=== PATIENT | male | born 1975 | race Caucasian/White ===

== ENCOUNTER 2018-03-11 08:54 | Inpatient (IN) ==
[2018-03-11] MEDS ORDERED: Morphine Inj 4 MG/ML Vial IV.PUSH ONE (09:32)
[2018-03-11] MEDS ORDERED: Sod Chloride 0.9% Inj 1,000 ML IV.CONT SCH (09:45)
--- NOTE | 2018-03-11 10:04 | ED ---
HPI General Chief Complaint: Fall Stated Complaint: Fall Time Seen by Provider: 03/11/18 09:20 Source: patient, EMS, RN notes reviewed and old records reviewed Mode of arrival: EMS Limitations: no limitations History of Present Illness HPI Narrative: 43-year-old male presents to the emergency department via EMS for stated complaint of falling off a roof. Patient states he was approximately 10 feet high. He was working when it occurred. He states that he fell and landed on his butt and hit his head. He reports significant right hip pain. Patient also reports pain to the occipital head. Current pain is 10/ 10, aching and throbbing, without radiation. Patient reports no chronic medical problems and takes no prescribed medications. Patient is Setswana- speaking and per patient's request, translation is done through family on his phone. The patient denies taking anticoagulants or having any bleeding disorders. Moderate severity. MD complaint: fall Onset (ago): minute(s) Fall from: from height (distance) (10 feet from roof) Place fall occurred: work Loss of consciousness: yes Length of LOC: second(s) Prolonged down time: no Symptoms prior to fall: none Context: tripped/slipped Location of injury: head, back and other (pelvis) Severity: moderate Severity scale (1-10): 10 Quality: aching Related Data Home Medications Medication Instructions Recorded Confirmed No Known Home Medications 03/11/18 03/11/18 Allergies Allergy/AdvReac Type Severity Reaction Status Date / Time No Known Allergies Allergy Unverified 03/11/18 09:32 Review of Systems Except as stated in HPI: all other systems reviewed are negative PMFSH Medical History Medical History Medical history unknown (Acute) Patient denies medical problems (Acute) Social History Social History Substance History: No History of Abuse Second Hand Smoke Exposure: No Smoking Status: Current every day smoker How Often Do You Have a Drink Containing Alcohol: Monthly or less Recent Travel in [place] within the Last 8 Weeks: No Recent Out of Country Travel within the Last 8 Weeks: No Exam Narrative Exam Narrative: GENERAL: Well-nourished, well-developed male patient, afebrile. Patient is lying on a backboard with a c-collar in place. SKIN: Focused skin assessment warm/dry. No lacerations or abrasions HEAD: Normocephalic. Atraumatic EYES: No scleral icterus. No injection or drainage. NECK: Supple, trachea midline. No JVD or lymphadenopathy. CARDIOVASCULAR: Regular rate and rhythm without murmurs, gallops, or rubs. Bilateral radial and pedal pulses are 2+ RESPIRATORY: Breath sounds equal bilaterally. No accessory muscle use. Lung sounds are clear to auscultation GASTROINTESTINAL: Abdomen soft, non-tender, nondistended. MUSCULOSKELETAL: No cyanosis, or edema. BACK: No obvious deformity. No CVA tenderness. Patient is tenderness over right lower back and midline lower back. Course Initial Documented Vital Signs Temperature 98.0 F 03/11/18 09:54 Pulse Rate 57 L 03/11/18 09:54 Respiratory Rate 16 03/11/18 09:54 Blood Pressure 125/85 03/11/18 09:54 Pulse Oximetry 96 03/11/18 09:54 Last Documented Vital Signs Temperature 98.0 F 03/11/18 09:54 Pulse Rate 74 03/11/18 13:58 Respiratory Rate 16 03/11/18 13:58 Blood Pressure 108/61 03/11/18 13:58 Pulse Oximetry 100 03/11/18 13:58 Medical Decision Making MDM Narrative Medical decision making narrative: 43-year-old male presents to the emergency department via EMS after he states he fell from a roof. Patient reports significant lower back and hip pain/pelvic pain. IV access established. CBC, CMP, PTT, PT/INR are ordered and pending. CT of the brain, cervical spine, chest, abdomen/pelvis, thoracic spine, lumbar spine are ordered and pending. NS 1 Liter IV bolus, Morphine 4 mg IV, Reglan 10 mg IV are ordered. CBC shows leukopenia 1.9, neutrophil count was calculated by my attending physician, Dr. Phillips, and total neutrophil count is 712.5, not neutropenic at this time. CMP shows protein corrected calcium of 7.8. PTT is 20.8, PT/INR is 10.0/1.0. CT of the brain is negative. CT of the cervical spine shows no acute findings. CT of the chest shows acute nondisplaced fracture through the left first costochondral junction. CT of the abdomen/pelvis shows acute right L1-[address] of the thoracic spine shows no acute findings. CT of the lumbar spine shows fractures of the right transverse process at L1, L2, and L3 with some surrounding mild hemorrhage. I talked to Dr. Estrada, radiologist and he states this is in the muscle and to be expected with the injury. I discussed the case wtih my attending physician, Dr. Phillips, who recommends TLSO brace, ambulation, pain medications. Patient was unable to stand up or walk due to significant amount of pain. Patient will be admitted. Differential Diagnosis Differential Diagnosis: intracranial hemorrhage vs. contusion vs. closed head injury vs. strain vs. sprain vs. fracture Medical Records Medical records reviewed: Yes I reviewed the patient's medical records. Lab Data Result diagrams: 03/11/18 09:50 03/11/18 09:50 Lab Results 03/11/18 03/11/18 03/11/18 Range/Units 09:50 09:50 09:50 WBC 1.9 L (4.0-11.0) th/mm3 RBC 4.42 L (4.50-5.90) mil/mm3 Hgb 12.3 L (13.0-17.0) gm/dL Hct 37.0 L (39.0-51.0) % MCV 83.5 (80.0-100.0) fL MCH 27.7 (27.0-34.0) pg MCHC 33.2 (32.0-36.0) % RDW 13.5 (11.6-17.2) % Plt Count 236 (150-450) th/mm3 MPV 7.7 (7.0-11.0) fL Prelim Diff (Auto) Slide review pending Neut % (Auto) 37.5 (16.0-70.0) % Lymph % (Auto) 49.3 H (9.0-44.0) % Burt % (Auto) 10.8 H (0.0-8.0) % Eos % (Auto) 2.0 (0.0-4.0) % Baso % (Auto) 0.4 (0.0-2.0) % Neut # (Auto) 0.7 L (1.8-7.7) th/mm3 Lymph # (Auto) 0.9 L (1.0-4.8) th/mm3 Burt # (Auto) 0.2 (0.0-0.9) th/mm3 Eos # (Auto) 0.0 (0.0-0.4) th/mm3 Baso # (Auto) 0.0 (0.0-0.2) th/mm3 WBC Differential Manual diff final Seg Neuts % (Manual) 53 (16-70) % Band Neuts % (Manual) 1 (0-6) % Lymphocytes % (Manual) 35 (9-44) % Monocytes % (Manual) 8 (0-8) % Eosinophils % (Manual) 2 (0-4) % Plasma Cell % (Manual) 1 H (0-0) % Abs Neuts (Manual) 1.0 L (1.8-7.7) th/mm3 Differential Comment . Platelet Estimate Normal (Normal) Platelet Morphology Normal (Normal) RBC Morphology Normal (Normal) PT 10.0 (9.8-11.6) sec INR 1.0 Ratio APTT 20.8 L (24.3-30.1) sec Sodium 145 (136-145) meq/L Potassium 3.7 (3.5-5.1) meq/L Chloride 118 H (98-107) meq/L Carbon Dioxide 19.6 L (21.0-32.0) meq/L Anion Gap 7 (5-15) meq/L BUN 12 (7-18) mg/dL Creatinine 0.72 (0.60-1.30) mg/dL Estimated GFR Greater than 89 (>89) mL/min Random Glucose 80 (74-106) mg/dL Calcium 7.2 L* (8.5-10.1) mg/dL Prot Corrected Calcium 7.8 L (8.5-10.1) mg/dL Total Bilirubin 0.2 (0.2-1.0) mg/dL AST 25 (15-37) U/L ALT 26 (12-78) U/L Alkaline Phosphatase 82 (45-117) U/L Total Protein 5.9 L (6.4-8.2) g/dL Albumin 3.0 L (3.4-5.0) g/dL Imaging Data Radiologist's impression: Abdomen/Pelvis CT 03/11/18 09:32 CONCLUSION: 1. Acute right L1-3 transverse process fractures. Otherwise, unremarkable exam. Cervical Spine CT 03/11/18 09:32 CONCLUSION: 1. No acute findings. Chest CT 03/11/18 09:32 CONCLUSION: 1. Acute nondisplaced fracture through the left first costochondral junction. Otherwise, unremarkable exam. Head CT 03/11/18 09:32 CONCLUSION: 1. Negative CT Head non contrast. Lumbar Spine CT 03/11/18 09:32 CONCLUSION: 1. Fractures of the right transverse process at L1, L2 and L3 with some surrounding mild hemorrhage. No vertebral body fracture or spondylolisthesis. Thoracic Spine CT 03/11/18 09:32 CONCLUSION: 1. No acute findings. Discharge Plan Discharge Disposition Patient Disposition: 30 Still Patient Discharge Details Diagnosis: Closed fracture of transverse process of lumbar vertebra, Closed rib fracture, Fall, Leukopenia Physicians Team ED Provider: Obdulio Phillips ED Midlevel Provider: Kassandra German Primary Care Provider: Primary Care Pushpa Ryan Attending Provider: Daiana Georges Status ED Status: Admitted Patient
[2018-03-11 10:36] LABS: Baso % (Auto) 0.4 % (0.0-2.0); Hemoglobin 12.3 gm/dL (13.0-17.0); Lymph # (Auto) 0.9 th/mm3 (1.0-4.8); Lymph % (Auto) 49.3 % (9.0-44.0); Mean Corpuscular HGB Conc 33.2 % (32.0-36.0); Mean Corpuscular Hemoglobin 27.7 pg (27.0-34.0); Mean Corpuscular Volume 83.5 fL (80.0-100.0); Mean Platelet Volume 7.7 fL (7.0-11.0); Mono # (Auto) 0.2 th/mm3 (0.0-0.9); Mono % (Auto) 10.8 % (0.0-8.0); Neut # (Auto) 0.7 th/mm3 (1.8-7.7); Neut % (Auto) 37.5 % (16.0-70.0); Platelet Count 236 th/mm3 (150-450); Red Blood Count 4.42 mil/mm3 (4.50-5.90); Red Cell Distribution Width 13.5 % (11.6-17.2); White Blood Count 1.9 th/mm3 (4.0-11.0)
[2018-03-11 10:55] LABS: Activated Partial Thrombo Time 20.8 sec (24.3-30.1)
[2018-03-11 11:03] LABS: Alanine Aminotransferase 26 U/L (12-78); Alkaline Phosphatase 82 U/L (45-117); Anion Gap 7 meq/L (5-15); Aspartate Aminotransferase 25 U/L (15-37); Blood Urea Nitrogen 12 mg/dL (7-18); Calcium 7.2 mg/dL (8.5-10.1); Carbon Dioxide 19.6 meq/L (21.0-32.0); Chloride 118 meq/L (98-107); Glomerular Filtration Rate Greater Than 89 mL/min (>89); Glucose,Random 80 mg/dL (74-106); Potassium 3.7 meq/L (3.5-5.1); Sodium 145 meq/L (136-145); Total Protein 5.9 g/dL (6.4-8.2)
[2018-03-11 11:19] LABS: Eosinophils 2 % (0-4); Lymphocytes 35 % (9-44); Monocytes 8 % (0-8); Plasma Cells 1 % (0-0)
[2018-03-11 11:20] LABS: Path Slide Review N; Platelet Estimate Normal (Normal); Platelet Morphology Normal (Normal); RBC Morphology Normal (Normal)
--- NOTE | 2018-03-11 12:02 | CT ---
EXAM DATE: 03/11/2018 11:58 AM EDT AGE/SEX: 43 years / Male INDICATIONS: TRauma, fell 10 feet off of roof. CLINICAL DATA: This is the patient's initial encounter. Patient reports that signs and symptoms have been present for 1 day and indicates a pain score of 7/10. MEDICAL/SURGICAL HISTORY: None. None. RADIATION DOSE: 66.35 CTDI (mGy) COMPARISON: No prior exams available for comparison. TECHNIQUE: CT of the head without contrast. Using automated exposure control and adjustment of the mA and/or kV according to patient size, radiation dose was kept as low as reasonably achievable to ob tain optimal diagnostic quality images. DICOM format image data is available electronically for revi ew and comparison. FINDINGS: Cerebrum: The ventricles are normal for age. No evidence of midline shift, mass lesion, hemorrhage or acute infarction. No extraaxial fluid collections are seen. Posterior Fossa: The cerebellum and brainstem are intact. The 4th ventricle is midline. The cerebe llopontine angle is unremarkable. Extracranial: The visualized portion of the orbits is intact. Skull: The calvaria is intact. No evidence of skull fracture. CONCLUSION: 1. Negative CT Head non contrast. Electronically signed by: Horacio Nina MD 03/11/2018 12:01 PM EDT
--- NOTE | 2018-03-11 12:21 | CT ---
EXAM DATE: 03/11/2018 12:15 PM EDT AGE/SEX: 43 years / Male INDICATIONS: Trauma, fell 10 feet off of roof. CLINICAL DATA: This is the patient's initial encounter. Patient reports that signs and symptoms have been present for 1 day and indicates a pain score of 7/10. MEDICAL/SURGICAL HISTORY: None. None. ORAL CONTRAST: No oral contrast ingested. RADIATION DOSE: 9.97 CTDI (mGy) ; Combined studies COMPARISON: No prior exams available for comparison. TECHNIQUE: Multiple contiguous axial images were obtained through the abdomen and pelvis following b olus infusion of 97 ml Omnipaque 350 (iohexol) nonionic water-soluble contrast as a single exam dos e. No oral contrast ingested. Using automated exposure control and adjustment of the mA and/or kV ac cording to patient size, radiation dose was kept as low as reasonably achievable to obtain optimal di agnostic quality images. DICOM format image data is available electronically for review and comparis on. FINDINGS: Lower Lungs: The visualized lower lungs are clear. Liver: The liver has a homogeneous density without space-occupying lesion. There is no dilation of th e biliary tree. Spleen: Homogeneous density without enlargement. Pancreas: Unremarkable without mass or calcification. Kidneys: Normal in size and shape. No evidence of mass or hydronephrosis. Adrenal Glands: Unremarkable. Aorta: The aorta and proximal iliac vessels are grossly unremarkable without aneurysmal dilation. Bowel/Mesentery: The bowel loops are grossly unremarkable. The cecum and sigmoid colon have a normal configuration. Abdominal Wall: Intact. Retroperitoneum: No evidence of adenopathy in the retrocrural, para-aortic, or deep pelvic regions. Bladder: Contours are smooth. Reproductive Organs: No abnormal masses or calcifications seen. Inguinal: The inguinal region is unremarkable without evidence of adenopathy. Bony Structures: Acute right L1-L3 transverse process fractures.. CONCLUSION: 1. Acute right L1-3 transverse process fractures. Otherwise, unremarkable exam. Electronically signed by: Horacio Nina MD 03/11/2018 12:20 PM EDT
--- NOTE | 2018-03-11 12:24 | CT ---
EXAM DATE: 03/11/2018 12:16 PM EDT AGE/SEX: 43 years / Male INDICATIONS: TRauma, fell 10 feet off of roof. CLINICAL DATA: This is the patient's initial encounter. Patient reports that signs and symptoms have been present for 1 day and indicates a pain score of 7/10. MEDICAL/SURGICAL HISTORY: None. None. RADIATION DOSE: 9.97 CTDI (mGy) ; Reconstructed from previous dataset, no dose COMPARISON: No prior exams available for comparison. TECHNIQUE: Multiple contiguous axial images were obtained through the chest during bolus infusion of 97 ml Omnipaque 350 (iohexol) nonionic water-soluble contrast as a cumulative dose for multiple exa ms. Images were obtained in suspended respiration using multiple row detector helical technique. U sing automated exposure control and adjustment of the mA and/or kV according to patient size, radiati on dose was kept as low as reasonably achievable to obtain optimal diagnostic quality images. DICOM format image data is available electronically for review and comparison. FINDINGS: Lungs: The lungs are symmetrically aerated. No infiltrates or nodular densities are seen. Mediastinum: There is good visualization of the great vessels of the middle mediastinum. No evidenc e of mediastinal or hilar adenopathy/mass. Pleurae: No evidence of focal thickening or pleural effusion. Axillae: Unremarkable. Bony Structures: There is an acute nondisplaced fracture through the costochondral cartilage of the first rib. Bony structures are otherwise unremarkable.. Miscellaneous: The examination was extended to include the upper abdomen, and both adrenal glands ar e normal in size and configuration. CONCLUSION: 1. Acute nondisplaced fracture through the left first costochondral junction. Otherwise, unremarkabl e exam. Electronically signed by: Horacio Nina MD 03/11/2018 12:23 PM EDT
--- NOTE | 2018-03-11 12:51 | CT ---
EXAM DATE: 03/11/2018 12:34 PM EDT AGE/SEX: 43 years / Male INDICATIONS: Trauma, fell 10 feet off of roof. CLINICAL DATA: This is the patient's initial encounter. Patient reports that signs and symptoms have been present for 1 day and indicates a pain score of 7/10. MEDICAL/SURGICAL HISTORY: None. None. RADIATION DOSE: 21.01 CTDI (mGy) COMPARISON: No prior exams available for comparison. TECHNIQUE: Contiguous axial images were obtained using helical multirow detector technique. The vol umetric data was post-processed with multiplanar reconstruction in oblique axial, sagittal, and coron al planes. Using automated exposure control and adjustment of the mA and/or kV according to patient s ize, radiation dose was kept as low as reasonably achievable to obtain optimal diagnostic quality beronica ges. DICOM format image data is available electronically for review and comparison. FINDINGS: There is no acute fracture or spondylolisthesis. No prevertebral soft tissue swelling. There is no ca nal stenosis. CONCLUSION: 1. No acute findings. Electronically signed by: Alex Estrada MD 03/11/2018 12:50 PM EDT
--- NOTE | 2018-03-11 12:55 | CT ---
EXAM DATE: 03/11/2018 12:44 PM EDT AGE/SEX: 43 years / Male INDICATIONS: Trauma, fell 10 feet off of roof. CLINICAL DATA: This is the patient's initial encounter. Patient reports that signs and symptoms have been present for 1 day and indicates a pain score of 7/10. MEDICAL/SURGICAL HISTORY: None. None. RADIATION DOSE: . CTDI (mGy) ; Reconstructed from previous dataset, no dose COMPARISON: No prior exams available for comparison. TECHNIQUE: Contiguous axial images were acquired with a multirow detector CT scanner after intraveno us administration of 97 ml Omnipaque 350 (iohexol) nonionic water-soluble contrast as a cumulative d ose for multiple exams. Multiplanar reconstructions in the sagittal and coronal plane were also perf ormed. Using automated exposure control and adjustment of the mA and/or kV according to patient size, radiation dose was kept as low as reasonably achievable to obtain optimal diagnostic quality images. DICOM format image data is available electronically for review and comparison. FINDINGS: There are fractures through the right transverse process at L1, L2 and L3 with a small amount of surr ounding hemorrhage. There is no vertebral body fracture or spondylolisthesis. No canal or foraminal s tenosis. CONCLUSION: 1. Fractures of the right transverse process at L1, L2 and L3 with some surrounding mild hemorrhage. No vertebral body fracture or spondylolisthesis. Electronically signed by: Alex Estrada MD 03/11/2018 12:54 PM EDT
--- NOTE | 2018-03-11 13:00 | CT ---
EXAM DATE: 03/11/2018 12:40 PM EDT AGE/SEX: 43 years / Male INDICATIONS: Trauma, patient fell 10 feet off of roof. CLINICAL DATA: This is the patient's initial encounter. Patient reports that signs and symptoms have been present for 1 day and indicates a pain score of 7/10. MEDICAL/SURGICAL HISTORY: None. None. RADIATION DOSE: 9.97 CTDI (mGy) ; Reconstructed from previous dataset, no dose COMPARISON: No prior exams available for comparison. TECHNIQUE: Contiguous axial images were acquired using a multirow detector CT scanner after intraven ous administration of 97 ml Omnipaque 350 (iohexol) nonionic water-soluble contrast as a cumulative dose for multiple exams. Multiplanar reconstruction in the sagittal and coronal planes was performe d. Using automated exposure control and adjustment of the mA and/or kV according to patient size, ra diation dose was kept as low as reasonably achievable to obtain optimal diagnostic quality images. D ICOM format image data is available electronically for review and comparison. FINDINGS: There is no acute fracture or spondylolisthesis. No canal or foraminal stenosis. There is no paravert ebral soft tissue swelling. Dependent atelectasis in the lungs. CONCLUSION: 1. No acute findings. Electronically signed by: Alex Estrada MD 03/11/2018 12:58 PM EDT
[2018-03-11] MEDS ORDERED: HYDROmorphone PF Inj 1 MG/ML Ampul IV.PUSH PRN (17:41)
--- NOTE | 2018-03-11 17:58 | P.HPCC ---
History of Present Illness Primary Care Physician: No Primary Care Physician Chief Complaint: Back pain History of Present Illness: 43 y.o male fell 10 feet from the roof-seen and worked up by the ER.C/o back pain-cannot ambulate,neuro intact,GCS 15-resting comfortably at the time of my exam. Inpatient Certification: I certify that the inpatient services were ordered in accordance with Medicare regulations governing the order. This includes certification that hospital inpatient services are reasonable and necessary and in the case of services not specified as inpatient-only under 42 CFR 419.22(n), that they are appropriately provided as inpatient services in accordance to with the 2-midnight benchmark under 43 CFR 412.3(e) Estimated Total Length of Stay (Days): 2 Plans for Post Hospital Care: Home Review of Systems Constitutional: Denies anorexia, Denies body ache(s), Denies chills, Denies daytime sleepiness, Denies excessive sweating, Denies fatigue, Denies fever(s), Denies headache(s), Denies increased appetite, Denies lack of energy, Denies malaise, Denies night sweats, Denies weakness, Denies weight gain, Denies weight loss, Denies other Eyes: Denies blind spots, Denies blurry vision, Denies bulging eyes, Denies change in vision, Denies double vision, Denies discharge, Denies dry eyes, Denies floaters, Denies irritation, Denies itchy eyes, Denies loss of vision, Denies pain, Denies requires corrective lenses, Denies sensitivity to light, Denies other Ears, Nose, Mouth, and Throat: Denies abnormal hearing, Denies bleeding gums, Denies bad breath, Denies change in voice, Denies dental pain, Denies difficulty swallowing, Denies dizziness, Denies dry mouth, Denies ear discharge , Denies ear pain, Denies facial pain, Denies headache(s), Denies hearing loss, Denies hoarseness, Denies lip swelling, Denies nosebleed, Denies mouth lesions, Denies mouth pain, Denies nasal congestion, Denies nasal discharge, Denies nasal obstruction, Denies nasal trauma, Denies neck lump, Denies neck pain, Denies nose pain, Denies pain with swallowing, Denies poor balance, Denies post nasal drip, Denies ringing in the ears, Denies sinus pain, Denies sinus pressure , Denies sore throat, Denies throat swelling, Denies tongue swelling, Denies other Cardiovascular: Denies chest pain, Denies chest pain at rest, Denies chest pain with activity, Denies excessive sweating, Denies fainting, Denies fast heart rate, Denies foot swelling, Denies generalized swelling, Denies irregular heart rhythm, Denies leg pain with activity, Denies leg sores, Denies leg swelling, Denies lightheadedness, Denies radiating jaw, neck or arm pain, Denies rapid, pounding, or irregular heartbeat, Denies shortness of breath, Denies shortness of breath with activity, Denies shortness of breath when lying down, Denies shortness of breath causing sudden awakening, Denies slow heart rate, Denies other Respiratory: Denies change in phlegm color, Denies chest congestion, Denies cough, Denies coughing up blood, Denies excessive phlegm production, Denies pain on inspiration, Denies pain with cough, Denies shortness of breath, Denies shortness of breath with activity, Denies snoring, Denies stridor, Denies wheezing, Denies other Gastrointestinal: Denies abdominal pain, Denies belching, Denies black, tarry stools, Denies bloating, Denies bright, red blood in stools, Denies change in bowel habits, Denies constant urge to pass stool, Denies change in stools, Denies coffee ground vomit, Denies constipation, Denies cramping, Denies difficulty swallowing, Denies excessive passing of gas, Denies feeling full early, Denies heartburn, Denies incontinent of stools, Denies loose stools, Denies nausea, Denies pain with swallowing, Denies vomiting, Denies vomiting blood, Denies other Genitourinary: Denies blood in semen, Denies blood in urine, Denies decreased urination, Denies difficulty urinating, Denies difficulty with ejaculations, Denies erectile dysfunction, Denies genital lesions, Denies genital pain, Denies painful urination, Denies side pain, Denies frequent nighttime urination , Denies painful ejaculations, Denies penile discharge, Denies scrotal swelling , Denies testicle lump, Denies testicle pain, Denies urinary frequency, Denies urinary hesitancy, Denies urinary incontinence, Denies urinary urgency, Denies other Skin/Breast: Denies acne, Denies bleeding lesions, Denies boil, Denies breast swelling, Denies breast skin changes, Denies breast pain, Denies breast lump, Denies change in breast shape, Denies change in hair, Denies change in skin color, Denies changing lesions, Denies dry skin, Denies excessive hair growth, Denies hair loss, Denies itching, Denies lesions, Denies nail changes, Denies new lesions, Denies nipple discharge, Denies non-healing lesions, Denies redness , Denies sensitivity to light, Denies rash, Denies skin pain, Denies skin ulcer , Denies sores, Denies stretch higgins, Denies unusual bruising, Denies wounds, Denies yellowing of the skin, Denies other Neurologic: Denies abnormal hearing, Denies abnormal movements, Denies abnormal speech, Denies abnormal walking, Denies behavioral changes, Denies burning sensations, Denies confusion, Denies dizziness, Denies fainting, Denies frequent falls, Denies headache(s), Denies lack of coordination, Denies localized weakness, Denies loss of vision, Denies memory loss, Denies numbness, Denies other visual disturbances, Denies radiating pain, Denies restless legs, Denies convulsions, Denies seizure-like activity, Denies sensory deficit, Denies tingling, Denies tingling/numbness/burning sensations, Denies tremor(s), Denies unsteadiness, Denies weakness, Denies other Psychiatric: Denies abnormal sleep pattern, Denies anxiety, Denies behavioral changes, Denies change in appetite, Denies change in sex drive, Denies confusion , Denies depression, Denies difficulty concentrating, Denies hearing things others do not hear, Denies hopelessness, Denies irritability, Denies lack of enjoyment, Denies memory loss, Denies mood swings, Denies panic attacks, Denies paranoia, Denies seeing things others do not see, Denies sensing things others do not sense, Denies tactile hallucinations, Denies thoughts of hurting/killing others, Denies thoughts of hurting/killing yourself, Denies other Endocrine: Denies cold intolerance, Denies excessive sweating, Denies flushing, Denies heat intolerance, Denies increased hunger, Denies increased thirst, Denies increased urination, Denies rapid, pounding, or irregular heartbeat, Denies other Hematologic/Lymphatic: Denies easy bleeding, Denies easy bruising, Denies enlarged lymph nodes, Denies other PMFSH - History History Provided By: Engraving Supervisor / EMT - Medical History Medical History: Medical History (Last Updated 03/11/18 @ 10:00 by Purnima Merlos) Medical history unknown Patient denies medical problems - Tobacco History Second Hand Smoke Exposure: No Tobacco Use In Past 30 Days: No Smoking Status: Current every day smoker - Alcohol History How Often Do You Have a Drink Containing Alcohol: Monthly or less - Substance Use History Substance History: No History of Abuse - Travel History Recent Travel in the [place] Within the Last 8 Weeks: No Recent Travel Out of the Country Within the Last 8 Weeks: No - Immunization History Tetanus Immunization: Unsure Hx Influenza Vaccine This Season: Unable to Assess Medications and Allergies Active Medications: Active Medications Chlorhexidine Gluconate (Chlorhexidine 2% Cloth) 3 pack TOPICAL DAILY@0400 [facility] Stop: 03/17/18 03:59 Chlorhexidine Gluconate (Chlorhexidine 2% Cloth) 3 pack TOPICAL DAILY@0400 PRN PRN Reason: Extra cloth needed Stop: 03/17/18 03:59 Docusate Sodium (Colace) 100 mg PO BID [facility] Hydromorphone HCl (Dilaudid Pf Inj) 1 mg IV.PUSH Q4H PRN PRN Reason: Break through pain Lactated Ringer's (Lr 1000 Ml Inj) 1,000 mls @ 100 mls/hr IV.CONT .Q10H [facility] Acetaminophen (Ofirmev Inj) 1,000 mg in 100 mls @ 400 mls/hr IV.SIG Q6H [facility] Stop: 03/12/18 12:14 Methocarbamol (Robaxin) 500 mg PO Q8HR [facility] Ondansetron HCl (Zofran Inj) 4 mg IV.PUSH Q6H PRN PRN Reason: NAUSEA OR VOMITING Oxycodone HCl (Roxicodone) 5 mg PO Q4H PRN PRN Reason: PAIN SCALE 3 TO 5 Oxycodone HCl (Roxicodone) 10 mg PO Q4H PRN PRN Reason: PAIN SCALE 6 TO 10 Sodium Chloride (Ns Flush) 2 ml IV.FLUSH PRN PRN PRN Reason: FLUSH AFTER USING IV ACCESS Last Admin: 03/11/18 09:42 Dose: 2 ml Sodium Chloride (Ns Flush) 2 ml IV.FLUSH UNSCH PRN PRN Reason: FLUSH AFTER USING IV ACCESS Allergies Allergy/AdvReac Type Severity Reaction Status Date / Time No Known Allergies Allergy Unverified 03/11/18 09:32 Home Medications Medication Instructions Recorded Confirmed Type No Known Home Medications 03/11/18 03/11/18 History Results - Labs CBC & Chem 7: 03/11/18 09:50 03/11/18 09:50 Labs: Short CBC 03/11/18 Range/Units 09:50 WBC 1.9 L (4.0-11.0) th/mm3 Hgb 12.3 L (13.0-17.0) gm/dL Hct 37.0 L (39.0-51.0) % Plt Count 236 (150-450) th/mm3 BMP 03/11/18 09:50 Sodium 145 Potassium 3.7 Chloride 118 H Carbon Dioxide 19.6 L BUN 12 Creatinine 0.72 Calcium 7.2 L* Liver Function 03/11/18 Range/Units 09:50 Total Bilirubin 0.2 (0.2-1.0) mg/dL AST 25 (15-37) U/L ALT 26 (12-78) U/L Alkaline Phosphatase 82 (45-117) U/L Albumin 3.0 L (3.4-5.0) g/dL - Imaging Impressions Abdomen/Pelvis CT 03/11/18 09:32 CONCLUSION: 1. Acute right L1-3 transverse process fractures. Otherwise, unremarkable exam. Cervical Spine CT 03/11/18 09:32 CONCLUSION: 1. No acute findings. Chest CT 03/11/18 09:32 CONCLUSION: 1. Acute nondisplaced fracture through the left first costochondral junction. Otherwise, unremarkable exam. Head CT 03/11/18 09:32 CONCLUSION: 1. Negative CT Head non contrast. Lumbar Spine CT 03/11/18 09:32 CONCLUSION: 1. Fractures of the right transverse process at L1, L2 and L3 with some surrounding mild hemorrhage. No vertebral body fracture or spondylolisthesis. Thoracic Spine CT 03/11/18 09:32 CONCLUSION: 1. No acute findings. Exam Vital signs: Vital Signs 03/11/18 09:54 03/11/18 09:58 03/11/18 13:58 Temperature 98.0 F Pulse Rate 57 L 58 L 74 Respiratory Rate 16 16 16 Blood Pressure 125/85 116/78 108/61 Pulse Oximetry 96 100 100 Intake & Output 03/10/18 03/11/18 03/11/18 18:59 06:59 18:59 Intake Total 1000 / 1000 Balance 1000 / 1000 Weight 68.039 kg Intake: IV 1000 / 1000 NS Inj 1,000 ML @ 1000 mls/hr 1000 / 1000 IV.CONT .Q1H [facility] Rx#:[id number] - Constitutional no acute distress - Routine HEENT Exam Head: Present: normocephalic, atraumatic Eye: Present: EOMI, PERRL, normal accommodation ENT: Present: mucous membranes moist - Routine Neck Exam Present: supple, full ROM - Routine Chest/Breast/Axilla Exam Chest wall: Present: tenderness - Routine Cardiovascular Exam Present: bradycardia - Routine Abdominal Exam Present: soft, normoactive bowel sounds - Routine Extremities Exam Present: full ROM, pulses intact, normal capillary refill - Routine Skin Exam Present: intact - Routine Neurological Exam Present: alert, oriented X3 Caprini VTE Risk Assessment Caprini VTE Risk Assessment: No/Low Risk (score <= 1) (lovenox tomorrow) Caprini Risk Assessment Model: Point Value = 1 Point Value = 2 Point Value = 3 Point Value = 5 Age 41-60 Minor surgery BMI > 25 kg/m2 Swollen legs Varicose veins or History of unexplained or recurrent spontaneous Oral contraceptives or hormone replacement Sepsis (< 1 month) Serious lung disease, including pneumonia (< 1 month) Abnormal pulmonary function Acute myocardial infarction Congestive heart failure (< 1 month) History of inflammatory bowel disease Medical patient at bed rest Age 61-74 Arthroscopic surgery Major open surgery (> 45 min) Laparoscopic surgery (> 45 min) Malignancy Confined to bed (> 72 hours) Immobilizing plaster cast Central venous access Age >= 75 History of VTE Family history of VTE Factor V Leiden Prothrombin [id number] Lupus anticoagulant Anticardiolipin antibodies Elevated serum homocysteine Heparin-induced thrombocytopenia Other congenital or acquired thrombophilia Stroke (< 1 month) Elective arthroplasty Hip, pelvis, or leg fracture Acute spinal cord injury (< 1 month) Prophylaxis Regimen: Total Risk Factor Score Risk Level Prophylaxis Regimen 0-1 Low Early ambulation 2 Moderate Order ONE of the following: *Sequential Compression Device (SCD) *Heparin 5000 units SQ BID 3-4 Higher Order ONE of the following medications: *Heparin 5000 units SQ TID *Enoxaparin/Lovenox 40 mg SQ daily (WT < 150 kg, CrCl > 30 mL/min) *Enoxaparin/Lovenox 30 mg SQ daily (WT < 150 kg, CrCl > 10-29 mL/min) *Enoxaparin/Lovenox 30 mg SQ BID (WT < 150 kg, CrCl > 30 mL/min) AND/OR *Sequential Compression Device (SCD) 5 or more Highest Order ONE of the following medications: *Heparin 5000 units SQ TID (Preferred with Epidurals) *Enoxaparin/Lovenox 40 mg SQ daily (WT < 150 kg, CrCl > 30 mL/min) *Enoxaparin/Lovenox 30 mg SQ daily (WT < 150 kg, CrCl > 10-29 mL/min) *Enoxaparin/Lovenox 30 mg SQ BID (WT < 150 kg, CrCl > 30 mL/min) AND *Sequential Compression Device (SCD) Assessment and Plan - Assessment and Plan Plan: First rib fx L1,L2,L3 TP fx Admit to med/surg pain control ambulate
[2018-03-11] MEDS ORDERED: HYDROmorphone PF Inj 2 MG/ML Vial IV.PUSH PRN (18:00)
[2018-03-11] MEDS: Methocarbamol 500 MG Tablet PO SCH (18:19)
[2018-03-11] MEDS: Docusate Sodium 100 MG Capsule PO SCH (22:37)
[2018-03-12] MEDS ORDERED: Chlorhexidine Gluconate 2% 1 Pack (2 Cloths) TOPICAL PRN (04:00)
[2018-03-12] MEDS ORDERED: Chlorhexidine Gluconate 2% 1 Pack (2 Cloths) TOPICAL SCH (04:00)
--- NOTE | 2018-03-12 05:28 | XR ---
EXAM DATE: 03/12/2018 5:04 AM EDT AGE/SEX: 43 years / Male INDICATIONS: Follow up trauma due to falling 10 feet off of roof. CLINICAL DATA: This is the patient's initial encounter. Patient reports that signs and symptoms have been present for 2 days and indicates a pain score of 10/10. MEDICAL/SURGICAL HISTORY: None. None. COMPARISON: [facility] [place], CT CHEST W CONTRAST, 03/11/2018. . FINDINGS: There are mild bibasilar parenchymal opacities which may be atelectasis or contusion. Cardiac contour s are grossly satisfactory for technique and projection. CONCLUSION: Mild basilar parenchymal opacities. Electronically signed by: Mane Larios MD 03/12/2018 5:27 AM EDT
[2018-03-12 06:19] LABS: Baso % (Auto) 0.3 % (0.0-2.0); Eos % (Auto) 0.3 % (0.0-4.0); Hematocrit 36.1 % (39.0-51.0); Lymph # (Auto) 0.6 th/mm3 (1.0-4.8); Lymph % (Auto) 25.9 % (9.0-44.0); Mean Corpuscular HGB Conc 33.2 % (32.0-36.0); Mean Corpuscular Hemoglobin 27.9 pg (27.0-34.0); Mean Corpuscular Volume 84.3 fL (80.0-100.0); Mean Platelet Volume 7.3 fL (7.0-11.0); Mono # (Auto) 0.2 th/mm3 (0.0-0.9); Mono % (Auto) 8.3 % (0.0-8.0); Neut # (Auto) 1.5 th/mm3 (1.8-7.7); Neut % (Auto) 65.2 % (16.0-70.0); Platelet Count 244 th/mm3 (150-450); Red Blood Count 4.28 mil/mm3 (4.50-5.90); Red Cell Distribution Width 13.6 % (11.6-17.2); White Blood Count 2.2 th/mm3 (4.0-11.0)
[2018-03-12] MEDS: Methocarbamol 500 MG Tablet PO SCH ×3 (06:20→21:20)
[2018-03-12 07:37] LABS: Anion Gap 11 meq/L (5-15); Blood Urea Nitrogen 9 mg/dL (7-18); Calcium 8.3 mg/dL (8.5-10.1); Chloride 106 meq/L (98-107); Glomerular Filtration Rate Greater Than 89 mL/min (>89); Glucose,Random 112 mg/dL (74-106); Potassium 3.7 meq/L (3.5-5.1); Sodium 140 meq/L (136-145)
--- NOTE | 2018-03-12 08:27 | ECG ---
Date Performed: 03/11/2018 Time Performed: 13:08:09 PTAGE: 43 years EKG: SINUS BRADYCARDIA POSSIBLE RIGHT VENTRICULAR CONDUCTION DELAY BORDERLINE ECG NO PREVIOUS TRACING DOCTOR: Sridhar Martinez Interpretating Date/Time 03/12/2018 08:22:23
[2018-03-12] MEDS: Famotidine 20 MG Tablet PO SCH ×2 (08:35→21:16)
[2018-03-12] MEDS: Docusate Sodium 100 MG Capsule PO SCH ×2 (08:35→21:16)
[2018-03-12] MEDS: Lidocaine 5% Patch T-DERMAL SCH (08:35)
[2018-03-12] MEDS ORDERED: Morphine Sulfate Inj 2 MG/ML Vial IV.PUSH PRN (12:18)
[2018-03-12] MEDS ORDERED: Melatonin 5 MG Tablet PO PRN (12:19)
--- NOTE | 2018-03-12 12:24 | P.PN ---
Addendum entered and electronically signed by POLI Brady 15:46: WBC - 2.2 (1.9 on admission) Obtain hematology consult for evaluation Pt claims no medical history. Original Note: Subjective Interval history: TRAUMA PTD: 1 Pt lying in bed. C/O headache. Girlfriend at bedside and assists with translation. Physical Exam Vital signs: Vital Signs 03/11/18 13:58 03/11/18 17:00 03/11/18 20:00 Temperature 98.6 F Pulse Rate 74 77 50 L Respiratory Rate 16 20 15 Blood Pressure 108/61 104/56 L 117/77 Pulse Oximetry 100 97 97 03/11/18 22:00 03/12/18 00:00 03/12/18 04:00 Temperature 98.2 F 97.8 F Pulse Rate 55 L 52 L 53 L Respiratory Rate 16 18 Blood Pressure 123/81 99/58 L Pulse Oximetry 98 95 03/12/18 08:00 03/12/18 10:10 03/12/18 12:10 Temperature 97.8 F Pulse Rate 52 L Respiratory Rate 19 16 Blood Pressure 123/74 Pulse Oximetry 94 L 94 L Intake & Output 03/11/18 03/12/18 03/12/18 18:59 06:59 18:59 Intake Total 1000 / 1000 1740 / 1740 Output Total 300 / 300 250 / 250 Balance 700 / 700 1490 / 1490 Weight 68.039 kg 78.1 kg Intake: IV 1000 / 1000 1260 / 1260 LR 1000 mL Inj 1,000 ML @ 100 960 / 960 mls/hr IV.CONT .Q10H [facility] Rx#: [id number] NS Inj 1,000 ML @ 1000 mls/hr 1000 / 1000 IV.CONT .Q1H [facility] Rx#:[id number] Ofirmev Inj 1,000 mg In 100 ml 300 / 300 @ 400 mls/hr IV.SIG Q6H [facility] Rx# :[id number] Oral 480 / 480 Output: Urine 300 / 300 250 / 250 Other: # Voids 1 Date of Last Bowel Movement 03/10/18 Weight On Admission 60.039 kg Narrative: GENERAL: This is a 43-year-old male lying in bed. No distress noted. SKIN: Warm and dry. HEAD: Atraumatic. Normocephalic. EYES: PERRLA ENT: No nasal bleeding or discharge. Mucous membranes pink and moist. NECK: Trachea midline. No JVD. CARDIOVASCULAR: Regular rate and rhythm. RESPIRATORY: No accessory muscle use. Lungs are clear to auscultation. Breath sounds equal bilaterally. No distress or dyspnea. GASTROINTESTINAL: BS + x 4 quads. Abdomen soft, non-tender, nondistended. MUSCULOSKELETAL: Extremities without cyanosis, or edema. + peripheral pulses x 4 extremities. Warm with good capillary refill and sensation. MAEW. NEUROLOGICAL: Awake and alert. Normal speech and pattern. Results - Labs CBC & Chem 7: 03/14/18 13:52 03/14/18 13:52 Laboratory Results - last 24 hr 03/11/18 03/12/18 03/12/18 23:45 05:53 05:53 WBC 2.2 L RBC 4.28 L Hgb 12.0 L Hct 36.1 L MCV 84.3 MCH 27.9 MCHC 33.2 RDW 13.6 Plt Count 244 MPV 7.3 Neut % (Auto) 65.2 Lymph % (Auto) 25.9 [place] % (Auto) 8.3 H Eos % (Auto) 0.3 Baso % (Auto) 0.3 Neut # (Auto) 1.5 L Lymph # (Auto) 0.6 L [place] # (Auto) 0.2 Eos # (Auto) 0.0 Baso # (Auto) 0.0 WBC Differential . Differential Comment Auto diff final Sodium 140 Potassium 3.7 Chloride 106 D Carbon Dioxide 23.0 Anion Gap 11 BUN 9 Creatinine 0.88 Estimated GFR Greater than 89 Random Glucose 112 H Calcium 8.3 L D Nasal Screen MRSA (PCR) Not detected - Imaging Impressions Abdomen/Pelvis CT 03/11/18 09:32 CONCLUSION: 1. Acute right L1-3 transverse process fractures. Otherwise, unremarkable exam. Cervical Spine CT 03/11/18 09:32 CONCLUSION: 1. No acute findings. Chest CT 03/11/18 09:32 CONCLUSION: 1. Acute nondisplaced fracture through the left first costochondral junction. Otherwise, unremarkable exam. Lumbar Spine CT 03/11/18 09:32 CONCLUSION: 1. Fractures of the right transverse process at L1, L2 and L3 with some surrounding mild hemorrhage. No vertebral body fracture or spondylolisthesis. Thoracic Spine CT 03/11/18 09:32 CONCLUSION: 1. No acute findings. Chest X-Ray 03/12/18 06:00 CONCLUSION: Mild basilar parenchymal opacities. Assessment and Plan - Plan SUN'AQ: This is a 43-year-old male who sustained a fall from a roof. He fell approximately 10 feet. He landed on his buttocks and hit his head. GCS 15. INJURIES: LEFT rib fx (1) L1-L3 right transverse process fx w/ hemorrhage Procedures: Consults: Case management. Diet: Regular diet. Tolerating po diet. Encourage good po intake with each meal. Pulmonary: Encourage good pulmonary toileting. IS and acapella at bedside and pt encouraged to use. Rationale for use explained to patient, and verbalized understanding. PAIN Management: Oxycodone 5-10 mg q 4h. DC Dilaudid (itching) Try Morphine 3 mg q 3h breakthrough pain. Robaxin 500 mg q8h. Lidoderm Patch. Ofirmev x 4 doses. Added Benadryl for itching. Sleep: Melatonin 5 mg q HS. Activity: OOB. PT ordered. (TLSO brace) GI prophylaxis: Pepcid 20 mg BID po Bowel regimen: Colace. MOM. LBM: 03/10 DVT prophylaxis: Mechanical VTE with SCDs. Chemical management with Lovenox 30 mg BID SQ. DC Planning: Case management consulted for assistance with final discharge disposition. Emotional support provided to patient and family at bedside and plan of care discussed. Discussed with RN at bedside. Discussed pt condition and plan of care with collaborating trauma surgeon. Patient is hemodynamically stable and being managed on the med/surg floor. The trauma team will round each day, and evaluate plan of care on a daily basis. LEFT rib fx (1) L1-L3 right transverse process fx w/ hemorrhage O2 nasal cannula as needed Supportive care Aggressive pulmonary toileting Chest x-ray daily This A.m. chest x-ray shows bibasilar opacities. Contusion versus atelectasis. Pain management PT and OT ordered Encourage out of bed TLSO brace when Bowel regimen Lovenox for DVT prophylaxis Addendum Patient seen and examined, continue pain control, continue ambulation complains of pain le right lower extremity will obtain x-rays to r/o fracture
--- NOTE | 2018-03-12 20:18 | MB ---
cc: Michelle Lugo MD, Ruby Anne E MD DATE: 03/12/2018 REFERRING PHYSICIAN: Dr. Daiana Georges. CHIEF COMPLAINT: Dr. Georges requests a consultation for Mr. Randal Aparicio regarding leukopenia associated with anemia, post-trauma. HISTORY OF PRESENT ILLNESS: Mr. Randal Aparicio is a 43-year-old man with no significant past history. He apparently does not go to a doctor for any reason. He was working on the roof and fell backwards. It was a misstep. He fell, hit his back, back of his leg, his hip and the back of his head. He presented to the emergency room and was brought in via executive search consultant and EMT. He had imaging study that confirmed various injuries, mainly fracture to the acute right L1-L3 transverse processes. He also has a nondisplaced fracture through the left first costochondral junction. He complains mainly of pain in his right hip. He has pain in his back. He is anxious about meeting with hematology. During his evaluation, laboratory studies were performed that shows leukopenia, white blood cell count 1.9, hemoglobin 12.3, and differential that shows a 1% plasma cell. A repeat CBC the following day continues to show the leukopenia, white blood cell count 2.2, hemoglobin 12.0, platelet count 244. He is still in a significant amount of pain. He is managed conservatively for his various fractures. Hematology oncology is consulted for the anemia and leukopenia. Prior to his injury, he was well. Denies any fevers, chills or night sweats. He has no significant family history of a blood disorder. He has no known blood disorder. He has no headaches. No vision changes, no previous history of hypertension, diabetes, or cholesterol problems. His chemistry is noted to have a normal glucose and normal kidney function. His total protein is noted to be low; however, an albumin is 3.0; however, this is post his acute injury. PAST MEDICAL HISTORY: Leukopenia, anemia, trauma with transverse process and first left rib fracture. PAST SURGICAL HISTORY: None. SOCIAL HISTORY: He is a current smoker. He denies any illicit drug use. He drinks alcohol less than once a month. FAMILY HISTORY: No family history of cancer or blood disorder. ALLERGIES: NO KNOWN DRUG ALLERGIES. CURRENT MEDICATIONS: 1. Milk of magnesia 2. Benadryl. 2. Colace. 3. Lovenox. 4. Pepcid. 5. Lidocaine patch 6. Melatonin 7. Robaxin 8. Morphine p.r.n. 9. Zofran. 10. Roxicodone. PHYSICAL EXAMINATION: VITAL SIGNS: Temperature 97.6, heart rate 106, respiratory rate 19, blood pressure 125/60, saturation 96%. GENERAL: Mr. Randal Aparicio is a well-developed, well-nourished, anxious-appearing man. HEENT: Pupils are round, reactive to light and accommodation. Oropharynx is clear. NECK: Supple. LUNGS: Clear anteriorly. CARDIOVASCULAR: Reveals a mild tachycardia. ABDOMEN: Benign. LOWER EXTREMITIES: No edema. NEUROLOGIC: Nonfocal. LABORATORY DATA: As described above. IMAGING STUDIES: CT of the abdomen 03/11 shows acute right L1-L3 transverse process fracture. CT scan of the chest shows acute nondisplaced fracture through the left first costochondral joint. Otherwise, uneventful exam. ASSESSMENT AND PLAN: Mr. Randal Aparicio is a 43-year-old man with no significant past history. He has no known prior blood disorder. He fell and fractured L1-L3 transverse process on the right. He also has a fracture of the left first costochondral junction. He has contusions in his hip as well as back. He is conservatively using ice as recommended to decrease the inflammation and obtained good hemostasis. Suspect the decrease in hemoglobin from normal range is related to the bleeding in the area of trauma. We will monitor closely his hemoglobin as he was placed on low molecular weight heparin for DVT prophylaxis. He is at increased risk in light of his decreased mobility. He, however, has trauma and hematoma in those areas. We will monitor closely. May need to decrease his low molecular weight heparin. Peripheral smear will be reviewed. LDH is checked as well as retic counts. I anticipate that the peripheral smear will be negative and normal. I suspect this is his baseline or at least related to the acute trauma. We discussed that I suspect that his white blood cells are localizing to the sites of trauma and thus the decreased white blood cell count seen in circulation. Ideally we would compare his CBC to previous one, but he has not seen a doctor for many years. We recommend checking a CBC once he is better several weeks from now in confirming his baseline labs. MD RICHELLE Martinez , 07:42 PM , 08:16 PM
[2018-03-12] MEDS ORDERED: Enoxaparin Inj 30 MG/0.3 ML Syringe SQ SCH (21:00)
[2018-03-12] MEDS ORDERED: Ketorolac Inj 30 MG/ML (IVP) Vial IV.PUSH ONE ×2 (22:45→23:00)
[2018-03-13] MEDS: Methocarbamol 500 MG Tablet PO SCH ×4 (05:15→22:36)
--- NOTE | 2018-03-13 06:55 | XR ---
EXAM DATE: 03/13/2018 6:47 AM EDT AGE/SEX: 43 years / Male INDICATIONS: Follow up trauma fall 10 feet off a roof. CLINICAL DATA: This is the patient's subsequent encounter. Patient reports that signs and symptoms h ave been present for 3 days and indicates a pain score of 8/10. MEDICAL/SURGICAL HISTORY: None. None. COMPARISON: [facility], CHEST 1V SINGLE AP, 03/12/2018. . FINDINGS: Persistent mild bibasilar parenchymal opacities, left worse than right which may be mild lung contusi ons. Cardiac contours are grossly stable. CONCLUSION: No significant interval change Electronically signed by: Mane Larios MD 03/13/2018 6:53 AM EDT
[2018-03-13 07:26] LABS: Baso % (Auto) 0.4 % (0.0-2.0); Eos # (Auto) 0.1 th/mm3 (0.0-0.4); Eos % (Auto) 2.7 % (0.0-4.0); Hematocrit 35.3 % (39.0-51.0); Hemoglobin 11.8 gm/dL (13.0-17.0); Lymph # (Auto) 0.9 th/mm3 (1.0-4.8); Lymph % (Auto) 32.4 % (9.0-44.0); Mean Corpuscular HGB Conc 33.5 % (32.0-36.0); Mean Corpuscular Hemoglobin 28.1 pg (27.0-34.0); Mean Corpuscular Volume 83.9 fL (80.0-100.0); Mean Platelet Volume 7.3 fL (7.0-11.0); Mono # (Auto) 0.2 th/mm3 (0.0-0.9); Mono % (Auto) 8.5 % (0.0-8.0); Neut # (Auto) 1.6 th/mm3 (1.8-7.7); Platelet Count 230 th/mm3 (150-450); Red Cell Distribution Width 13.5 % (11.6-17.2); Reticulocyte Percent 1.6 % (0.4-3.0); White Blood Count 2.8 th/mm3 (4.0-11.0)
[2018-03-13] MEDS ORDERED: Enoxaparin Inj 30 MG/0.3 ML Syringe SQ SCH (09:00)
[2018-03-13] MEDS: Famotidine 20 MG Tablet PO SCH ×2 (09:32→22:34)
[2018-03-13] MEDS: Lidocaine 5% Patch T-DERMAL SCH (09:32)
[2018-03-13] MEDS: Docusate Sodium 100 MG Capsule PO SCH ×2 (09:32→20:54)
--- NOTE | 2018-03-13 09:58 | P.PNONC ---
Subjective Interval history: Afebrile Patient seen and examined in the presence of his girlfriend who helps with translation He reports having significant back pain when he moves his legs Was unable to work with physical therapy yesterday due to the pain He denies having any frequent infections in his life Patient's girlfriend tells me that he had a son who of possible cancer however this was in [place] with limited medical care available Objective Vital Signs/Intake & Output: Vital Signs 03/12/18 10:10 03/12/18 12:00 03/12/18 12:10 Temperature 98.4 F Pulse Rate 47 L Respiratory Rate 19 16 Blood Pressure 113/77 Pulse Oximetry 94 L 95 03/12/18 16:00 03/12/18 19:20 03/12/18 19:54 Temperature 97.6 F 97.8 F Pulse Rate 106 H 79 Respiratory Rate 19 18 Blood Pressure 125/60 145/89 H Pulse Oximetry 96 98 96 03/12/18 20:15 03/12/18 23:47 03/13/18 00:07 Temperature 97.2 F L Pulse Rate 57 L 61 Respiratory Rate 18 18 Blood Pressure 107/61 Pulse Oximetry 97 03/13/18 04:01 03/13/18 08:00 03/13/18 23:05 Temperature 97.5 F L 98.3 F Pulse Rate 69 63 Respiratory Rate 18 20 18 Blood Pressure 120/75 121/68 Pulse Oximetry 96 99 Intake & Output 03/12/18 03/13/18 03/13/18 18:59 06:59 18:59 Intake Total 2080 / 2080 1680 / 1680 1000 / 1000 Output Total 1000 / 1000 650 / 650 Balance 1080 / 1080 1030 / 1030 1000 / 1000 Weight 182 lb 5.156 oz Intake: IV 1100 / 1100 1200 / 1200 1000 / 1000 LR 1000 mL Inj 1,000 ML @ 100 1000 / 1000 1000 / 1000 1000 / 1000 mls/hr IV.CONT .Q10H [facility] Rx#: [id number] Ofirmev Inj 1,000 mg In 100 ml 100 / 100 200 / 200 @ 400 mls/hr IV.SIG NOW ONE Rx# :[id number] Oral 980 / 980 480 / 480 Output: Urine 1000 / 1000 650 / 650 Other: # Voids 2 Date of Last Bowel Movement 03/10/18 # Bowel Movements 0 Result Diagrams: 03/13/18 06:32 03/12/18 05:53 Laboratory Results: Laboratory Results - last 24 hr 03/13/18 03/13/18 06:32 06:32 WBC 2.8 L RBC 4.20 L Hgb 11.8 L Hct 35.3 L MCV 83.9 MCH 28.1 MCHC 33.5 RDW 13.5 Plt Count 230 MPV 7.3 Neut % (Auto) 56.0 Lymph % (Auto) 32.4 [place] % (Auto) 8.5 H Eos % (Auto) 2.7 Baso % (Auto) 0.4 Neut # (Auto) 1.6 L Lymph # (Auto) 0.9 L [place] # (Auto) 0.2 Eos # (Auto) 0.1 Baso # (Auto) 0.0 WBC Differential . Differential Comment Auto diff final Retic Count 1.6 Absolute Retic 67.8 Lactate Dehydrogenase 177 Imaging Studies: Impressions Chest X-Ray 03/13/18 06:00 CONCLUSION: No significant interval change Medications: Active Medications Generic Name Dose Route Start Last Admin Trade Name Ibrahima PRN Reason Stop Dose Admin Al Hydroxide/Mg Hydroxide 30 ml 03/12/18 09:00 03/13/18 09:32 Milk Of Magnesia Liq PO 30 ml BID [facility] Administration Docusate Sodium 100 mg 03/11/18 21:00 03/13/18 09:32 Colace PO 100 mg BID [facility] Administration Enoxaparin Sodium 30 mg 03/13/18 09:00 03/13/18 09:32 Lovenox Inj SQ 30 mg Q12HR [facility] Administration Famotidine 20 mg 03/12/18 09:00 03/13/18 09:32 Pepcid PO 20 mg BID [facility] Administration Lactated Ringer's 1,000 mls @ 100 mls/hr 03/11/18 17:45 03/13/18 09:37 Lr 1000 Ml Inj IV.CONT 100 mls/hr .Q10H [facility] Administration Lidocaine HCl 1 patch 03/12/18 09:00 03/13/18 09:32 Lidoderm 5% Patch.12 Hr T-DERMAL 1 patch DAILY [facility] Administration Methocarbamol 500 mg 03/11/18 18:00 03/13/18 05:15 Robaxin PO 500 mg Q8HR [facility] Administration Ondansetron HCl 4 mg 03/11/18 17:41 03/12/18 22:49 Zofran Odt SL 4 mg Q6H PRN Administration NAUSEA OR VOMITING Oxycodone HCl 10 mg 03/11/18 17:47 03/12/18 19:35 Roxicodone PO 10 mg Q4H PRN Administration PAIN SCALE 6 TO 10 Patch Removal 1 each 03/11/18 21:00 03/12/18 21:17 Remove Old Patch T-DERMAL 1 each Q12H [facility] Administration Sodium Chloride 2 ml 03/11/18 09:32 03/11/18 09:42 Ns Flush IV.FLUSH 2 ml PRN PRN Administration FLUSH AFTER USING IV ACCESS Objective Remarks: GENERAL: Younger male resting in bed in no obvious distress. He grimaces when he attempts to move his legs. SKIN: Warm and dry. HEAD: Normocephalic. EYES: No scleral icterus. No injection or drainage. NECK: Supple, trachea midline. No JVD or lymphadenopathy. CARDIOVASCULAR: Regular rate and rhythm without murmurs. RESPIRATORY: Clear anteriorly. Few crackles to right lower lobe. GASTROINTESTINAL: Abdomen soft, non-tender, nondistended. EXTREMITIES: No cyanosis, or edema. MUSCULOSKELETAL: Adequate muscle tone. NEUROLOGICAL: Moving all extremities. Follows commands. Assessment/Plan - Plan 43-year-old male brought in as a trauma alert; hematology consulted for noted leukopenia 1. White blood cells improving today. Absolute neutrophil count 1600. The patient does not have any fever. Patient noted to have normal LDH, normal reticulocyte count 2. Leukopenia likely in the presence of acute trauma as it is possible the WBC' s are localized to the site of injury. Recommend repeating labs once patient has recovered from acute trauma. - Attending Statement The exam, history, and the medical decision-making described in the above note were completed with the assistance of the mid-level provider. I reviewed and agree with the findings presented. I attest that I had a [id number] encounter with the patient on the same day, and personally performed and documented my assessment and findings in the medical record. Severe pain in the right hip and upper gluteal. Noted swelling. Pain is worse with movement. Noted a decrease in hemoglobin and concern of muscle bleed. He is advised to continue ice intermittently to the area. Pain medication continue. Leukopenia improve. No specific therapy.
--- NOTE | 2018-03-13 12:30 | P.PN ---
Subjective Interval history: Trauma PTD: 2 Patient lying in bed. No distress noted. Girlfriend at bedside who is helping us with translation. Girlfriend states, "I cannot take him home like this. I do not have any of this equipment." Patient is now complaining of severe right leg/thigh pain. Patient points to right upper/outer thigh, when asked where his pain is. Girlfriend states, "he was screaming bloody murder when they tried to get him up earlier. Do you want to see the video?" Physical Exam Vital signs: Vital Signs 03/12/18 16:00 03/12/18 19:20 03/12/18 19:54 Temperature 97.6 F 97.8 F Pulse Rate 106 H 79 Respiratory Rate 19 18 Blood Pressure 125/60 145/89 H Pulse Oximetry 96 98 96 03/12/18 20:15 03/12/18 23:47 03/13/18 00:07 Temperature 97.2 F L Pulse Rate 57 L 61 Respiratory Rate 18 18 Blood Pressure 107/61 Pulse Oximetry 97 03/13/18 04:01 03/13/18 08:00 03/13/18 23:05 Temperature 97.5 F L 98.3 F Pulse Rate 69 63 Respiratory Rate 18 20 18 Blood Pressure 120/75 121/68 Pulse Oximetry 96 99 Intake & Output 03/12/18 03/13/18 03/13/18 18:59 06:59 18:59 Intake Total 2080 / 2080 1680 / 1680 1000 / 1000 Output Total 1000 / 1000 650 / 650 Balance 1080 / 1080 1030 / 1030 1000 / 1000 Weight 82.7 kg Intake: IV 1100 / 1100 1200 / 1200 1000 / 1000 LR 1000 mL Inj 1,000 ML @ 100 1000 / 1000 1000 / 1000 1000 / 1000 mls/hr IV.CONT .Q10H [facility] Rx#: [id number] Ofirmev Inj 1,000 mg In 100 ml 100 / 100 200 / 200 @ 400 mls/hr IV.SIG NOW ONE Rx# :[id number] Oral 980 / 980 480 / 480 Output: Urine 1000 / 1000 650 / 650 Other: # Voids 2 Date of Last Bowel Movement 03/10/18 # Bowel Movements 0 Narrative: GENERAL: This is a 43-year-old male lying in bed. No distress noted. SKIN: Warm and dry. HEAD: Atraumatic. Normocephalic. EYES: PERRLA ENT: No nasal bleeding or discharge. Mucous membranes pink and moist. NECK: Trachea midline. No JVD. CARDIOVASCULAR: Regular rate and rhythm. RESPIRATORY: No accessory muscle use. Lungs are clear to auscultation. Breath sounds equal bilaterally. No distress or dyspnea. GASTROINTESTINAL: BS + x 4 quads. Abdomen soft, non-tender, nondistended. MUSCULOSKELETAL: Extremities without cyanosis, or edema. Right upper thigh slightly swollen. Patient is able to bend the right knee without difficulty. + peripheral pulses x 4 extremities. Warm with good capillary refill and sensation. MAEW. NEUROLOGICAL: Awake and alert. Normal speech and pattern. Results - Labs CBC & Chem 7: 03/14/18 13:52 03/14/18 13:52 Laboratory Results - last 24 hr 03/13/18 03/13/18 06:32 06:32 WBC 2.8 L RBC 4.20 L Hgb 11.8 L Hct 35.3 L MCV 83.9 MCH 28.1 MCHC 33.5 RDW 13.5 Plt Count 230 MPV 7.3 Neut % (Auto) 56.0 Lymph % (Auto) 32.4 [place] % (Auto) 8.5 H Eos % (Auto) 2.7 Baso % (Auto) 0.4 Neut # (Auto) 1.6 L Lymph # (Auto) 0.9 L [place] # (Auto) 0.2 Eos # (Auto) 0.1 Baso # (Auto) 0.0 WBC Differential . Differential Comment Auto diff final Retic Count 1.6 Absolute Retic 67.8 Lactate Dehydrogenase 177 - Imaging Impressions Impressions Femur X-Ray 03/13/18 00:00 CONCLUSION: Negative examination of the femur. Chest X-Ray 03/13/18 06:00 CONCLUSION: No significant interval change Assessment and Plan - Plan [place]: This is a 43-year-old male who sustained a fall from a roof. He fell approximately 10 feet. He landed on his buttocks and hit his head. GCS 15. INJURIES: LEFT rib fx (1) L1-L3 right transverse process fx w/ hemorrhage Procedures: Consults: Case management. Diet: Regular diet. Tolerating po diet. Encourage good po intake with each meal. Pulmonary: Encourage good pulmonary toileting. IS and acapella at bedside and pt encouraged to use. Rationale for use explained to patient, and verbalized understanding. PAIN Management: Oxycodone 5-10 mg q 4h. Morphine 3 mg q 3h breakthrough pain. Robaxin 500 mg q8h. Lidoderm Patch. Today patient complains of right upper/outer thigh pain. He cannot bear any weight. Admission pelvis x-ray, and CT abdomen and pelvis negative. Obtain dedicated right femur x-ray -negative for fracture. Consider consult to orthopedics if patient remains unable to bear weight. Added Benadryl for itching. Sleep: Melatonin 5 mg q HS. Activity: OOB. PT ordered. (TLSO brace) GI prophylaxis: Pepcid 20 mg BID po Bowel regimen: Colace. MOM. LBM: 03/10. DVT prophylaxis: Mechanical VTE with SCDs. Chemical management with Lovenox 30 mg BID SQ. DC Planning: Case management consulted for assistance with final discharge disposition. PT recommends [facility] PT. [id number] completed. DME ordered. Emotional support provided to patient and family at bedside and plan of care discussed. Discussed with RN at bedside. Discussed pt condition and plan of care with collaborating trauma surgeon. Patient is hemodynamically stable and being managed on the med/surg floor. The trauma team will round each day, and evaluate plan of care on a daily basis. LEFT rib fx (1) L1-L3 right transverse process fx w/ hemorrhage O2 nasal cannula as needed Supportive care Aggressive pulmonary toileting Chest x-ray daily This A.m. chest x-ray shows bibasilar opacities - L > R. Pain management PT and OT ordered Encourage out of bed TLSO brace when Bowel regimen Lovenox for DVT prophylaxis Right thigh/leg pain Supportive care Pain management Admission x-ray pelvis negative Admission CT abdomen and pelvis negative Obtain dedicated right femur x-ray -negative If patient continues to not be able to bear weight, consider consult to orthopedics for further management, care and recommendations PT and OT ordered - Attending Attestation Patient seen and examined the nurse practitioner Continue pain control continue physical therapy follow-up x-ray of right lower extremity
--- NOTE | 2018-03-13 13:31 | XR ---
EXAM DATE: 03/13/2018 1:22 PM EDT AGE/SEX: 43 years / Male INDICATIONS: Pain from fall off of a roof. CLINICAL DATA: This is the patient's initial encounter. Patient reports that signs and symptoms have been present for 3 days and indicates a pain score of 7/10. MEDICAL/SURGICAL HISTORY: None. None. COMPARISON: [facility] [place], CT ABDOMEN & PELVIS W CONTRAST, 03/11/2018. . FINDINGS: Bony structures are intact and in normal alignment. Osseous density is normal. Soft tissues are unre markable. No radiopaque foreign bodies seen. CONCLUSION: Negative examination of the femur. Electronically signed by: Geovani Plaza MD 03/13/2018 1:30 PM EDT
--- NOTE | 2018-03-13 14:49 | P.DCO ---
- Diagnosis (1) Closed fracture of transverse process of lumbar vertebra (2) Closed rib fracture (3) Fall - Physical Therapy Order: Evaluate and treat, Improve ambulation, Strength and gait training - Home Health Nursing Order: Medical education, Signs/symptoms of disease process, Medication education-adverse effect, Nursing assessment with vital signs - Certification I have seen patient Quinton Lozada on 03/13/18. My clinical findings support the need for the requested home health care services because: Limited mobility due to disease progression, Patient has SOB, Deconditioned with increased weakness, High risk of falls, Infection with risk of complications I certify that my clinical findings support that this patient is homebound because: Post-op weakness, Unsteady gait/balance, Unsafe to leave home unassisted, Non- ambulatory: confined to bed or chair, Unable to use public transportation (1) Closed fracture of transverse process of lumbar vertebra Qualifiers: Encounter type: initial encounter Qualified Code(s): S32.009A - Unspecified fracture of unspecified lumbar vertebra, initial encounter for closed fracture (2) Closed rib fracture Qualifiers: Encounter type: initial encounter Rib fracture type: single rib Laterality: left Qualified Code(s): S22.32XA - Fracture of one rib, left side, initial encounter for closed fracture (3) Fall Qualifiers: Encounter type: initial encounter Qualified Code(s): W19.XXXA - Unspecified fall, initial encounter
[2018-03-14] MEDS: Methocarbamol 500 MG Tablet PO SCH (05:13)
[2018-03-14] MEDS: Lidocaine 5% Patch T-DERMAL SCH (08:20)
[2018-03-14] MEDS: Docusate Sodium 100 MG Capsule PO SCH (08:20)
[2018-03-14] MEDS: Famotidine 20 MG Tablet PO SCH (08:20)
--- NOTE | 2018-03-14 09:01 | XR ---
EXAM DATE: 03/14/2018 7:57 AM EDT AGE/SEX: 43 years / Male INDICATIONS: Follow up trauma due to falling 10 feet off of roof. CLINICAL DATA: This is the patient's subsequent encounter. Patient reports that signs and symptoms h ave been present for 4 - 6 days and indicates a pain score of 6/10. MEDICAL/SURGICAL HISTORY: None. None. COMPARISON: [facility] [place], CHEST 1V SINGLE AP, 03/13/2018. . FINDINGS: Portable AP view of the chest demonstrates a normal-sized cardiac silhouette. There is bilateral inte rstitial and airspace opacity diffusely throughout both lungs. The appearance is stable from the prio r examination. No pneumothorax or pleural effusion is identified. The bones demonstrate no acute find ing. CONCLUSION: Bilateral airspace consolidation, stable from the prior study. Electronically signed by: Mane Haynes MD 03/14/2018 9:00 AM EDT
--- NOTE | 2018-03-14 13:21 | P.PNONC ---
Subjective Interval history: Patient sitting in chair, in no acute distress. Egyptian translation Via [employer] patient assistance clinical transformation specialist. Patient complains of continued right leg pain and abdominal pain which she states is improved with the back brace being on. He denies any obvious bleeding. Objective Vital Signs/Intake & Output: Vital Signs 03/13/18 16:00 03/13/18 16:30 03/13/18 19:43 Temperature 98.9 F 97.6 F Pulse Rate 70 65 Respiratory Rate 20 18 18 Blood Pressure 135/83 137/88 Pulse Oximetry 91 L 96 03/13/18 20:15 03/13/18 21:48 03/13/18 23:55 Temperature 97.9 F Pulse Rate 79 62 Respiratory Rate 18 Blood Pressure 129/82 Pulse Oximetry 96 98 97 03/14/18 03:44 03/14/18 08:00 03/14/18 09:09 Temperature 98.0 F 97.8 F Pulse Rate 68 57 L Respiratory Rate 18 18 Blood Pressure 131/79 143/87 H Pulse Oximetry 96 95 96 03/14/18 09:47 Temperature Pulse Rate Respiratory Rate Blood Pressure Pulse Oximetry 96 Intake & Output 03/13/18 03/14/18 03/14/18 18:59 06:59 18:59 Intake Total 2900 / 2900 1360 / 1360 180 / 180 Output Total 500 / 500 1250 / 1250 Balance 2400 / 2400 110 / 110 180 / 180 Weight 82.7 kg Intake: IV 1000 / 1000 1000 / 1000 LR 1000 mL Inj 1,000 ML @ 100 1000 / 1000 1000 / 1000 mls/hr IV.CONT .Q10H [facility] Rx#: [id number] Oral 700 / 700 360 / 360 180 / 180 Other 1200 / 1200 Output: Urine 500 / 500 1250 / 1250 Other: Other Intake Source Saline Solution # Voids 2 Date of Last Bowel Movement 03/10/18 03/13/18 03/14/18 # Bowel Movements 1 0 Result Diagrams: 03/14/18 13:52 03/14/18 13:52 Imaging Studies: Impressions Femur X-Ray 03/13/18 00:00 CONCLUSION: Negative examination of the femur. Chest X-Ray 03/14/18 06:00 CONCLUSION: Bilateral airspace consolidation, stable from the prior study. Medications: Active Medications Generic Name Dose Route Start Last Admin Trade Name Freq PRN Reason Stop Dose Admin Al Hydroxide/Mg Hydroxide 30 ml 03/12/18 09:00 03/14/18 08:20 Milk Of Rojelio Liq PO Not Given BID [facility] Docusate Sodium 100 mg 03/11/18 21:00 03/14/18 08:20 Colace PO 100 mg BID [facility] Administration Enoxaparin Sodium 30 mg 03/13/18 09:00 03/13/18 09:32 Lovenox Inj SQ 30 mg Q12HR [facility] Administration Famotidine 20 mg 03/12/18 09:00 03/14/18 08:20 Pepcid PO 20 mg BID [facility] Administration Lactated Ringer's 1,000 mls @ 100 mls/hr 03/11/18 17:45 03/13/18 20:54 Lr 1000 Ml Inj IV.CONT 100 mls/hr .Q10H [facility] Administration Lidocaine HCl 1 patch 03/12/18 09:00 03/14/18 08:20 Lidoderm 5% Patch.12 Hr T-DERMAL 1 patch DAILY [facility] Administration Methocarbamol 500 mg 03/11/18 18:00 03/14/18 05:13 Robaxin PO 500 mg Q8HR [facility] Administration Ondansetron HCl 4 mg 03/11/18 17:41 03/13/18 17:09 Zofran Odt SL 4 mg Q6H PRN Administration NAUSEA OR VOMITING Oxycodone HCl 5 mg 03/11/18 17:41 03/14/18 05:13 Roxicodone PO 5 mg Q4H PRN Administration PAIN SCALE 3 TO 5 Oxycodone HCl 10 mg 03/11/18 17:47 03/14/18 09:53 Roxicodone PO 10 mg Q4H PRN Administration PAIN SCALE 6 TO 10 Patch Removal 1 each 03/11/18 21:00 03/14/18 08:20 Remove Old Patch T-DERMAL 1 each Q12H [facility] Administration Sodium Chloride 2 ml 03/11/18 09:32 03/11/18 09:42 Ns Flush IV.FLUSH 2 ml PRN PRN Administration FLUSH AFTER USING IV ACCESS Objective Remarks: GENERAL: Well-nourished, well-developed male patient. In no acute distress. SKIN: Warm and dry. HEAD: Normocephalic. EYES: No scleral icterus. No injection or drainage. NECK: Supple, trachea midline. CARDIOVASCULAR: Regular rate and rhythm without murmurs. RESPIRATORY: Anterior breath sounds clear, equal bilaterally. No accessory muscle use. GASTROINTESTINAL: Abdomen soft, tender RLQ and LLQ, nondistended. EXTREMITIES: No cyanosis, or edema. MUSCULOSKELETAL: Adequate muscle tone. NEUROLOGICAL: No obvious focal deficit. Awake, alert, and oriented x3. PSYCHIATRIC: Appropriate mood and affect; insight and judgment normal. Assessment/Plan - Plan 43-year-old male brought in as a trauma alert; hematology consulted for noted leukopenia 1. White blood cells improving. Awaiting lab results today. We will continue to follow. 2. Leukopenia likely secondary to acute trauma. We will repeat lab work and monitor the trend. - Attending Statement Discussed above. Pt being monitored for anemia, due to hematoma post trauma.
[2018-03-14 14:05] LABS: Hematocrit 37.9 % (39.0-51.0); Hemoglobin 12.7 gm/dL (13.0-17.0); Mean Corpuscular HGB Conc 33.5 % (32.0-36.0); Mean Corpuscular Volume 83.5 fL (80.0-100.0); Mean Platelet Volume 7.1 fL (7.0-11.0); Platelet Count 268 th/mm3 (150-450); Red Blood Count 4.53 mil/mm3 (4.50-5.90); Red Cell Distribution Width 13.7 % (11.6-17.2); White Blood Count 3.3 th/mm3 (4.0-11.0)
[2018-03-14 14:30] LABS: Albumin 3.2 g/dL (3.4-5.0); Anion Gap 10 meq/L (5-15); Aspartate Aminotransferase 17 U/L (15-37); Blood Urea Nitrogen 9 mg/dL (7-18); Calcium 8.5 mg/dL (8.5-10.1); Chloride 105 meq/L (98-107); Glomerular Filtration Rate 74 mL/min (>89); Glucose,Random 108 mg/dL (74-106); Potassium 4.2 meq/L (3.5-5.1); Sodium 140 meq/L (136-145)
[2018-03-14 14:34] LABS: Alanine Aminotransferase 22 U/L (12-78); Alkaline Phosphatase 94 U/L (45-117); Total Protein 7.1 g/dL (6.4-8.2)
[2018-03-15] MEDS: Docusate Sodium 100 MG Capsule PO SCH ×2 (00:50→09:00)
[2018-03-15] MEDS: Famotidine 20 MG Tablet PO SCH ×2 (00:50→09:01)
[2018-03-15] MEDS: Lidocaine 5% Patch T-DERMAL SCH (09:00)
--- NOTE | 2018-03-15 14:51 | P.DS ---
Date of admission: 03/11/18 16:38 Primary care physician: No Primary Care Physician Anticipated date of discharge: 03/14/18 Brief History from admission: Fall. DS: Diagnosis - Discharge Diagnosis (1) Closed fracture of transverse process of lumbar vertebra Status: Acute (2) Closed rib fracture Status: Acute (3) Fall Status: Acute DS: Medications - Discharge Medications Prescriptions: lidocaine [Lidoderm] 1 patch TRANSDERMAL DAILY 7 Days #7 ea methocarbamol 500 mg PO Q8HR 7 Days #21 tab oxycodone-acetaminophen [Percocet] 1 tab PO Q4-6H PRN 3 Days #18 tab PRN Reason: Pain DS: Summary Hospital Course: [facility]: This is a 43-year-old male who sustained a fall from a roof. He fell approximately 10 feet. He landed on his buttocks and hit his head. GCS 15. INJURIES: LEFT rib fx (1) L1-L3 right transverse process fx w/ hemorrhage Procedures: Consults: Case management. Patient was discharged yesterday, 03/14, however his girlfriend refused to take him home stating he was in pain. According to nursing charting, pain has been recorded at times from 0-5, with times of patient refusing pain meds. The patient is now tolerating a po diet. Eating and drinking well. Pain is being managed well with PO pain medications, and patient is being a provided with a script for pain meds upon discharge. [This patient will be prescribed narcotic pain medications due to his traumatic injuries. The patient has a normal physiological response to severe traumatic injuries and surgery. He will need acute pain management with prescribed narcotic treatment. The [employer] prescription drug monitoring program database has been queried.] (NO driving while taking narcotic pain medication enforced to patient.) Pt is having regular bowel movements, and have recommended to patient to continue with stool softeners while taking narcotic pain medications to prevent constipation. Pt has been participating in PT and OT while admitted at [facility] and has been ambulating with their assistance and independently. PT recommends [facility] PT, additionally a referral for outpatient PT and OT has been ordered. All follow up appointments have been provided and discussed with the patient. It is recommended that the patient keeps all his follow up appointments for continued recovery. Patient's condition and plan of care discussed with collaborating trauma surgeon. He is agreeable to plan for discharge today. Therefore, the patient is stable to be safely discharged home from a trauma surgery standpoint. Thank you for allowing us to participate in his care. We wish Quinton the best in his recovery. LEFT rib fx (1) L1-L3 right transverse process fx w/ hemorrhage O2 nasal cannula as needed Supportive care Aggressive pulmonary toileting Chest x-ray daily This A.m. chest x-ray shows bibasilar opacities - L > R. Pain management PT and OT ordered Encourage out of bed TLSO brace when Bowel regimen Lovenox for DVT prophylaxis Right thigh/leg pain Supportive care Pain management Admission x-ray pelvis negative Admission CT abdomen and pelvis negative Obtain dedicated right femur x-ray -negative PT and OT ordered - Time Spent with Patient Total time spent providing and/or coordinating discharge services: - Quality: VTE Deep Vein Thrombosis/Pulmonary Embolism Present on Admission: No Exam Vital signs: Vital Signs 03/14/18 16:00 03/14/18 18:27 03/14/18 20:35 Temperature 98.4 F 98.5 F Pulse Rate 60 64 Respiratory Rate 18 17 Blood Pressure 137/72 132/83 Pulse Oximetry 96 96 97 03/15/18 00:00 03/15/18 08:00 03/15/18 10:53 Temperature 98.4 F 98.4 F Pulse Rate 60 58 L Respiratory Rate 16 17 Blood Pressure 130/82 128/69 Pulse Oximetry 96 94 L 93 L 03/15/18 12:00 Temperature 98.3 F Pulse Rate 62 Respiratory Rate 18 Blood Pressure 138/87 Pulse Oximetry 97 Intake & Output 03/14/18 03/15/18 03/15/18 18:59 06:59 18:59 Intake Total 800 / 800 1480 / 1480 Output Total 1125 / 1125 950 / 950 Balance -325 / -325 530 / 530 Weight 80.6 kg Intake: IV 1000 / 1000 LR 1000 mL Inj 1,000 ML @ 100 1000 / 1000 mls/hr IV.CONT .Q10H [facility] Rx#: [id number] Oral 800 / 800 480 / 480 Output: Urine 1125 / 1125 950 / 950 Other: Date of Last Bowel Movement 03/14/18 03/14/18 03/14/18 # Bowel Movements 0 Narrative: GENERAL: This is a 43-year-old male lying in bed. No distress noted. SKIN: Warm and dry. HEAD: Atraumatic. Normocephalic. EYES: PERRLA ENT: No nasal bleeding or discharge. Mucous membranes pink and moist. NECK: Trachea midline. No JVD. CARDIOVASCULAR: Regular rate and rhythm. RESPIRATORY: No accessory muscle use. Lungs are clear to auscultation. Breath sounds equal bilaterally. No distress or dyspnea. GASTROINTESTINAL: BS + x 4 quads. Abdomen soft, non-tender, nondistended. MUSCULOSKELETAL: Extremities without cyanosis, or edema. + peripheral pulses x 4 extremities. Warm with good capillary refill and sensation. MAEW. NEUROLOGICAL: Awake and alert. Normal speech and pattern. Results Procedures completed during hospitalization: . - Impressions ITS Impressions Abdomen/Pelvis CT 03/11/18 09:32 CONCLUSION: 1. Acute right L1-3 transverse process fractures. Otherwise, unremarkable exam. Cervical Spine CT 03/11/18 09:32 CONCLUSION: 1. No acute findings. Chest CT 03/11/18 09:32 CONCLUSION: 1. Acute nondisplaced fracture through the left first costochondral junction. Otherwise, unremarkable exam. Head CT 03/11/18 09:32 CONCLUSION: 1. Negative CT Head non contrast. Lumbar Spine CT 03/11/18 09:32 CONCLUSION: 1. Fractures of the right transverse process at L1, L2 and L3 with some surrounding mild hemorrhage. No vertebral body fracture or spondylolisthesis. Thoracic Spine CT 03/11/18 09:32 CONCLUSION: 1. No acute findings. Femur X-Ray 03/13/18 00:00 CONCLUSION: Negative examination of the femur. Chest X-Ray 03/14/18 06:00 CONCLUSION: Bilateral airspace consolidation, stable from the prior study. Discharge Plan - Discharge Disposition Patient Disposition: /Home Health Service - Discharge Condition Condition: Stable - Discharge Order Discharge Orders: Discharge Order (Routine); Ordered 03/14/18 Ordered By: Belem Huber - Physicians Team Primary Care Provider: Primary Care Physici,No Attending Provider: Daiana Georges Other Providers: Claude Blas MD ; Juan Carlos Scott MD ; Systems, [employer] ; Jd Escobar MD ; Belem Huber ARNP ; Richard Rapp MD ; Daiana Georges MD ; Stephane Milner MD ; Sergio Askew ARNP ; Michelle Lugo MD
== END 2018-03-15 14:29 | disposition home health service (06) ==
LOC: NEPD 08:54 → NEDA 16:38 → N06 19:04
PROVIDERS: ADMIT Surgery Trauma Surgery; ATTEND Surgery Trauma Surgery
DX: F17.200 Nicotine dependence, unspecified, uncomplicated; S32.039A Unspecified fracture of third lumbar vertebra, initial encounter for closed fracture; D64.9 Anemia, unspecified; S32.029A Unspecified fracture of second lumbar vertebra, initial encounter for closed fracture; S32.019A Unspecified fracture of first lumbar vertebra, initial encounter for closed fracture; S22.32XA Fracture of one rib, left side, initial encounter for closed fracture; D72.819 Decreased white blood cell count, unspecified; M25.551 Pain in right hip; W13.2XXA Fall from, out of or through roof, initial encounter; R00.1 Bradycardia, unspecified; M79.604 Pain in right leg; R26.81 Unsteadiness on feet; R53.1 Weakness; R06.02 Shortness of breath; R40.2410 Glasgow coma scale score 13-15, unspecified time